=== PATIENT | male | born 1960 | race Caucasian/White ===

== ENCOUNTER 2016-10-23 15:58 | Inpatient (IN) | payer OTHER ==
[2016-10-31] MEDS ORDERED: PRILOSEC DPS20 MG PO (10:11)
[2016-10-31] MEDS ORDERED: LOPRESSOR DPS100 MG PO (10:11)
[2016-10-31] MEDS ORDERED: VIBRAMYCIN-DPS100 M2 PO (10:12)
[2016-10-31] MEDS ORDERED: TYLENOL DPS325 MG PO (10:12)
[2016-10-31] MEDS ORDERED: XARELTO20 MG PO (10:12)
[2016-10-31] MEDS ORDERED: PROAIR HFA8.5 GM IH (10:12)
[2016-10-31] MEDS ORDERED: OXY IR DPS5 MG PO (10:12)
== END 2016-10-30 12:25 | disposition home or self-care (01) | DRG 864 ==
DX: R50.9 Fever, unspecified (principal); N17.9 Acute kidney failure, unspecified; R65.10 Systemic inflammatory response syndrome (SIRS) of non-infectious origin without acute organ dysfunction; D69.6 Thrombocytopenia, unspecified; E87.1 Hypo-osmolality and hyponatremia; E83.39 Other disorders of phosphorus metabolism; I48.91 Unspecified atrial fibrillation; R41.0 Disorientation, unspecified; R21 Rash and other nonspecific skin eruption; E86.0 Dehydration; I10 Essential (primary) hypertension; R79.89 Other specified abnormal findings of blood chemistry; M79.621 Pain in right upper arm; R00.0 Tachycardia, unspecified; M19.90 Unspecified osteoarthritis, unspecified site; H10.9 Unspecified conjunctivitis; K21.9 Gastro-esophageal reflux disease without esophagitis; F12.90 Cannabis use, unspecified, uncomplicated; Z96.641 Presence of right artificial hip joint; Z82.49 Family history of ischemic heart disease and other diseases of the circulatory system; Z79.82 Long term (current) use of aspirin